=== PATIENT | female | born 1930 | race African-American/Black ===

== ENCOUNTER 2016-08-05 00:27 | Inpatient (IN) | payer OTHER ==
[~2016-08-05] VITALS: Ht 157.5 cm; Wt 76.8 kg
--- NOTE | ~2016-08-05 | EKG ---
[address] [place] [address] ELECTROCARDIOGRAM REPORT Name: FELI MUSE Room #: 456-P [facility] .R.#: [id number] Admission: 08/05/16 Attend Phys: Zaid Naik MD Discharge: Date of : 28 Report #: [id number] THIS REPORT FOR: //name// [facility] ED Test Date: 2016-08-05 Test Time: 00:56:53 Pat Name: FELI MUSE Department: Room: [facility] Gender: F Double [employer] Operator: MILDRED : 1930 Requested By: Caitlin Amador Order Number: [id number] MD: Raghu Virk Measurements Intervals [place] Rate: 66 P: 5 IN: 183 QRS: 4 QRSD: 92 T: 49 QT: 399 QTc: 418 Interpretive Statements Sinus rhythm Poor R wave progression no previous ECGs available for comparison Electronically Signed On 08-05-2016 8:52:57 CDT by Raghu Virk [email or web address] <ELECTRONICALLY SIGNED> By: Raghu Virk MD, [facility] 08/05/16 0852 0056 0056 Raghu Virk MD, FACC /EPI
[~2016-08-05 00:27] MED LIST: AMARYL2 MG PO; ASPIR 8181 MG PO; BACTRIM DS TAB1 EACH PO; COREG25 MG PO; COZAAR 25 MG TA25 M1 PO; HYDRALAZINE 2525 MG PO; HYDROCERIN CREA1 JAR TOP; HYDROCHLOROTH12.5 M1; IRON325 PO; KLOR-CON 1010 MEQ PO; LASIX 40 MG TAB40 M2 PO; LOVASTATIN 20 M20 MG PO; METFORMIN HCL500 MG PO; NORVASC5 MG PO; PROTONIX40 M4 PO; TRIAMCINOLONE A80 G2 TOP
[2016-08-05 01:06] LABS: HEMOGLOBIN 11.4 gm/dL (12.0-15.0); MCH 30.3 pg (26.0-34.0); MCHC 34.4 g/dL (28.0-37.0); PLATELET COUNT 218 thou/uL (150-400); RBC 3.75 mil/uL (4.20-5.00); RDW 13.9 % (10.5-14.5); WBC 10.2 thou/uL (4.0-11.0)
[2016-08-05 01:09] LABS: MANUAL DIFF YES
[2016-08-05 01:14] LABS: ANION GAP 11 mmol/L (7-16); BUN 17 mg/dL (7-18); CALCIUM 9.1 mg/dL (8.5-10.1); CHLORIDE 86 mmol/L (98-107); CO2 22 mmol/L (21-32); GLUCOSE 172 mg/dL (70-99); POTASSIUM 4.8 mmol/L (3.5-5.1)
[2016-08-05 01:18] LABS: SODIUM 119 mmol/L (136-145)
[2016-08-05 01:19] LABS: ABG SAMPLE TYPE VENOUS; BE(vivo) -3.2 mmol/L (-2 to +3); HCO3 20.1 mmol/L (22.0-26.0); LACTATE 1.35 mmol/L (0.5-2.0); O2(CT) 15.4 mL/dL (15.0-23.0); O2Hb VENOUS 86.9 (65.0-85.0); PCO2 VENOUS 30.9 mmHg (41.0-51.0); sO2 VENOUS 89.5 % (65.0-85.0); tCO2 21.1 mmol/L (24.0-30.0)
[2016-08-05 01:24] LABS: ALBUMIN 4.1 g/dL (3.4-5.0); ALKALINE PHOSPHATASE 51 U/L (46-116); CREATININE 0.9 mg/dL (0.6-1.3); NT-PRO BRAIN NAT PEPTIDE 291 pg/mL (<300); SGOT 23 U/L (15-37); SGPT 20 U/L (30-65); TOTAL BILIRUBIN 0.8 mg/dL (<0.1-1.0); TOTAL PROTEIN 7.6 g/dL (6.4-8.2); TROPONIN-I < 0.04 ng/mL (<0.04-0.07)
[2016-08-05 01:31] LABS: ABSOLUTE NEUTROPHILS 8.5 thou/uL (1.4-8.2); TOTAL CELL COUNT 100
[2016-08-05 02:39] LABS: URINE BILIRUBIN NEGATIVE (Negative); URINE BLOOD NEGATIVE (Negative); URINE COLOR YELLOW; URINE GLUCOSE-RANDOM* NEGATIVE (Negative); URINE KETONES NEGATIVE (Negative); URINE LEUKOCYTES-REFLEX TRACE (Negative); URINE PROTEIN (DIPSTICK) NEGATIVE (Negative); URINE SPECIFIC GRAVITY <= 1.005 (1.003-1.035); URINE UROBILINOGEN 0.2 E.U./dl (0.2-1.0)
[2016-08-05 10:59] LABS: CALCIUM 8.7 mg/dL (8.5-10.1); CREATININE 0.8 mg/dL (0.6-1.3); POTASSIUM 4.2 mmol/L (3.5-5.1)
[2016-08-05 16:12] LABS: CALCIUM 8.8 mg/dL (8.5-10.1); CREATININE 0.9 mg/dL (0.6-1.3); POTASSIUM 4.1 mmol/L (3.5-5.1)
[2016-08-06 04:07] LABS: HEMATOCRIT 31.3 % (37.0-47.0); HEMOGLOBIN 10.8 gm/dL (12.0-15.0); MCH 30.7 pg (26.0-34.0); MCHC 34.4 g/dL (28.0-37.0); RBC 3.52 mil/uL (4.20-5.00); RDW 14.1 % (10.5-14.5); WBC 8.1 thou/uL (4.0-11.0)
[2016-08-06 04:23] LABS: CALCIUM 8.7 mg/dL (8.5-10.1); CREATININE 0.8 mg/dL (0.6-1.3); POTASSIUM 3.8 mmol/L (3.5-5.1)
[2016-08-07 10:27] LABS: CALCIUM 8.8 mg/dL (8.5-10.1); CREATININE 0.8 mg/dL (0.6-1.3)
== END 2016-08-07 16:02 | disposition home or self-care (01) | DRG 638 ==
LOC: ER 00:27 → 4W 02:23 → EROBS 02:23 → 4W 02:39
PROVIDERS: Emergency Medicine; Hospitalist; Nurse Practitioner
DX: E11.65 Type 2 diabetes mellitus with hyperglycemia (principal); E87.1 Hypo-osmolality and hyponatremia; I10 Essential (primary) hypertension; Z87.81 Personal history of (healed) traumatic fracture; Z95.2 Presence of prosthetic heart valve; Z88.1 Allergy status to other antibiotic agents; Z91.040 Latex allergy status; Z98.42 Cataract extraction status, left eye; Z98.41 Cataract extraction status, right eye
CPT/HCPCS: 10045

== ENCOUNTER 2016-11-14 11:53 | Emergency (ER) | payer OTHER ==
[~2016-11-14] VITALS: Ht 157.5 cm; Wt 71.7 kg
[2016-11-14 12:29] LABS: URINE BILIRUBIN NEGATIVE (Negative); URINE BLOOD NEGATIVE (Negative); URINE COLOR YELLOW; URINE GLUCOSE-RANDOM* NEGATIVE (Negative); URINE KETONES NEGATIVE (Negative); URINE LEUKOCYTES-REFLEX 2+ (Negative); URINE PROTEIN (DIPSTICK) NEGATIVE (Negative); URINE SPECIFIC GRAVITY <= 1.005 (1.003-1.035); URINE UROBILINOGEN 0.2 E.U./dl (0.2-1.0)
[2016-11-14 12:31] LABS: HEMATOCRIT 34.9 % (37.0-47.0); HEMOGLOBIN 11.5 gm/dL (12.0-15.0); MCH 30.4 pg (26.0-34.0); MCV 91.9 fL (80.0-100.0); PLATELET COUNT 221 thou/uL (150-400); RDW 13.5 % (10.5-14.5); WBC 9.4 thou/uL (4.0-11.0)
[2016-11-14 12:33] LABS: MANUAL DIFF YES
[2016-11-14 12:38] LABS: CASTS None Seen /LPF (None Seen); CRYSTALS None Seen /LPF (None Seen); SQUAMOUS 0-3 Few /LPF (0-3); URINE RBC None Seen /HPF (0-2); URINE WBC-REFLEX 6-15 Few /HPF (0-5); WBC CLUMPS Few (None Seen)
[2016-11-14 12:41] LABS: CALCIUM 9.2 mg/dL (8.5-10.1); POTASSIUM 4.1 mmol/L (3.5-5.1)
[2016-11-14 12:45] LABS: ALBUMIN 3.9 g/dL (3.4-5.0); TOTAL BILIRUBIN 0.9 mg/dL (<0.1-1.0)
[2016-11-14 12:58] LABS: ABSOLUTE NEUTROPHILS 8.4 thou/uL (1.4-8.2); PLATELET ESTIMATE NORMAL; TOTAL CELL COUNT 100
[2016-11-14] MEDS ORDERED: KEFLEX500 MG PO (14:25)
== END 2016-11-14 14:50 | disposition home or self-care (01) ==
LOC: ER 11:53
PROVIDERS: Physician Assistant
DX: E11.65 Type 2 diabetes mellitus with hyperglycemia (principal); N39.0 Urinary tract infection, site not specified; Z95.4 Presence of other heart-valve replacement; Z88.1 Allergy status to other antibiotic agents; Z91.040 Latex allergy status

== ENCOUNTER 2017-01-16 03:05 | Emergency (ER) | payer OTHER ==
[~2017-01-16] VITALS: Ht 157.5 cm; Wt 69.4 kg
[~2017-01-16 03:05] MED LIST changes: +KEFLEX500 MG PO
[2017-01-16] MEDS ORDERED: HYDRALAZINE 2525 MG PO (03:17)
[2017-01-16] MEDS ORDERED: LOVASTATIN 20 M20 MG PO (03:17)
[2017-01-16] MEDS ORDERED: MACRODANTIN100 MG PO (03:18)
[2017-01-16] MEDS ORDERED: KLOR-CON 10 ER10 MEQ PO (03:19)
[2017-01-16] MEDS ORDERED: ATIVAN0.5 MG PO (04:12)
[2017-01-16 05:00] LABS: URINE BILIRUBIN NEGATIVE (Negative); URINE BLOOD NEGATIVE (Negative); URINE COLOR COLORLESS; URINE GLUCOSE-RANDOM* NEGATIVE (Negative); URINE KETONES NEGATIVE (Negative); URINE LEUKOCYTES-REFLEX TRACE (Negative); URINE PROTEIN (DIPSTICK) NEGATIVE (Negative); URINE SPECIFIC GRAVITY <= 1.005 (1.003-1.035); URINE UROBILINOGEN 0.2 E.U./dl (0.2-1.0)
== END 2017-01-16 05:52 | disposition home or self-care (01) ==
LOC: ER 03:05
PROVIDERS: Emergency Medicine
DX: E11.9 Type 2 diabetes mellitus without complications (principal); F41.9 Anxiety disorder, unspecified; Z98.890 Other specified postprocedural states; Z88.1 Allergy status to other antibiotic agents; Z91.040 Latex allergy status

== ENCOUNTER 2017-02-26 13:02 | Emergency (ER) | payer OTHER ==
[~2017-02-26] VITALS: Ht 157.5 cm; Wt 70.8 kg
--- NOTE | ~2017-02-26 | EKG ---
[address] [address] ELECTROCARDIOGRAM REPORT Name: FELI MUSE Room #: DEP [place]#: [id number] Admission: 02/26/17 Attend Phys: Discharge: 02/26/17 Date of : 28 Report #: [id number] THIS REPORT FOR: //name// [facility] ED Test Date: 2017-02-26 Test Time: 13:23:23 Pat Name: FELI MUSE Department: Room: Gender: F [employer] Clerk: 11 : 1930 Requested By: Roland Flower Order Number: [id number] MD: Loki Buchanan Measurements Intervals [place] Rate: 70 P: 16 RI: 147 QRS: -9 QRSD: 92 T: 46 QT: 414 QTc: 447 Interpretive Statements Sinus rhythm Low voltage, extremity leads Compared to ECG 08/05/2016 00:56:53 Low QRS voltage now present Poor R-wave progression no longer present Electronically Signed On 02-26-2017 23:27:59 CDT by Loki Buchanan [email or web address] <ELECTRONICALLY SIGNED> By: Loki Buchanan MD 02/26/17 [id number] 22 Loki Buchanan MD /SRAVANI
[~2017-02-26 13:02] MED LIST changes: +ATIVAN0.5 MG PO; +KLOR-CON 10 ER10 MEQ PO; +MACRODANTIN100 MG PO
[2017-02-26 14:09] LABS: HEMATOCRIT 34.9 % (37.0-47.0); HEMOGLOBIN 11.4 gm/dL (12.0-15.0); MCH 29.6 pg (26.0-34.0); MCHC 32.6 g/dL (28.0-37.0); MCV 90.6 fL (80.0-100.0); RBC 3.85 mil/uL (4.20-5.00); RDW 14.9 % (10.5-14.5); WBC 7.5 thou/uL (4.0-11.0)
[2017-02-26 14:14] LABS: URINE BILIRUBIN NEGATIVE (Negative); URINE BLOOD NEGATIVE (Negative); URINE COLOR YELLOW; URINE GLUCOSE-RANDOM* NEGATIVE (Negative); URINE KETONES NEGATIVE (Negative); URINE LEUKOCYTES-REFLEX NEGATIVE (Negative); URINE PROTEIN (DIPSTICK) NEGATIVE (Negative); URINE SPECIFIC GRAVITY <= 1.005 (1.003-1.035); URINE UROBILINOGEN 0.2 E.U./dl (0.2-1.0)
[2017-02-26 14:15] LABS: CALCIUM 9.9 mg/dL (8.5-10.1); CREATININE 0.8 mg/dL (0.6-1.0); POTASSIUM 3.8 mmol/L (3.5-5.1)
== END 2017-02-26 14:59 | disposition home or self-care (01) ==
LOC: ER 13:02
PROVIDERS: Emergency Medicine
DX: I10 Essential (primary) hypertension (principal); E11.9 Type 2 diabetes mellitus without complications; Z79.82 Long term (current) use of aspirin

== ENCOUNTER → 2017-04-27 | Outpatient (CLI) | payer OTHER ==
[~2017-04-27] MED LIST changes: +ALTOPREV20 M1 PO; +CARDURA4 MG PO; +CARTIA XT120 M1 PO; +KEFLEX500 M1 PO; +NORVASC2.5 MG PO
[2017-04-27 15:12] LABS: HEMATOCRIT 32.1 % (37.0-47.0); HEMOGLOBIN 10.5 gm/dL (12.0-15.0); MCH 30.1 pg (26.0-34.0); MCHC 32.7 g/dL (28.0-37.0); MCV 92.2 fL (80.0-100.0); PLATELET COUNT 173 thou/uL (150-400); RBC 3.48 mil/uL (4.20-5.00); RDW 15.1 % (10.5-14.5); WBC 8.8 thou/uL (4.0-11.0)
[2017-04-27 15:15] LABS: MANUAL DIFF YES
[2017-04-27 15:27] LABS: ALBUMIN 3.4 g/dL (3.4-5.0); CALCIUM 9.2 mg/dL (8.5-10.1); CREATININE 0.8 mg/dL (0.6-1.0); TOTAL PROTEIN 6.8 g/dL (6.4-8.2)
[2017-04-27 15:35] LABS: ABSOLUTE NEUTROPHILS 7.4 thou/uL (1.4-8.2); TOTAL CELL COUNT 100
[2017-04-27 23:10] LABS: GLYCOHEMOGLOBIN (HGB A1C) 6.3 % (4.8-5.6)
== END ==
LOC: SEN 13:03
PROVIDERS: Emergency Medicine
DX: I10 Essential (primary) hypertension (principal); E11.9 Type 2 diabetes mellitus without complications; D64.9 Anemia, unspecified; E87.1 Hypo-osmolality and hyponatremia